=== PATIENT | female | born 1975 | race Hispanic/Latino ===

== ENCOUNTER 2019-09-24 08:38 | Emergency (ER) | payer SELFPAY ==
[2019-09-24 08:42] VITALS: BP 109/76
[2019-09-24] MEDS ORDERED: KETOROLAC 60 MG/2 ML INJ IM ONE (08:55)
[2019-09-24] MEDS ORDERED: DICYCLOMINE 20 MG/2 ML INJ IM ONE (08:55)
[2019-09-24] MEDS ORDERED: ONDANSETRON 4 MG ODT TAB PO ONE (08:55)
--- NOTE | 2019-09-24 09:48 | Emergency Department Report ---
ED General Adult HPI - General Chief complaint: Nausea/Vomiting/Diarrhea Stated complaint: ABD PAIN/BODY PAIN Time Seen by Provider: 09/24/19 08:54 Source: patient Mode of arrival: Ambulatory Limitations: No Limitations - History of Present Illness Initial comments: Patient is a 43-year-old female who is presenting with nausea vomiting diarrhea for the past 2-3 days. Patient states she also has accompanying mild cough and body aches. and son also have been ill. The patient denies fever. Patient's last episode of vomiting was this morning. Patient states she has continued to have abdominal cramps which is severe Severity scale (0 -10): 8 - Related Data Previous Rx's Medication Instructions Recorded Last Taken Type Dicyclomine [Bentyl] 20 mg PO QID #10 tablet 09/24/19 Unknown Rx Ibuprofen [Motrin 600 MG tab] 600 mg PO Q8H PRN #10 tablet 09/24/19 Unknown Rx Ondansetron [Zofran Odt] 4 mg PO Q8HR #10 tab.rapdis 09/24/19 Unknown Rx traMADol [Ultram] 50 mg PO Q6HR PRN #12 tablet 09/24/19 Unknown Rx Allergies Allergy/AdvReac Type Severity Reaction Status Date / Time No Known Allergies Allergy Unverified 09/24/19 08:41 ED Review of Systems ROS: Stated complaint: ABD PAIN/BODY PAIN Other details as noted in HPI Comment: All other systems reviewed and negative ED Past Medical Hx - Social History Smoking Status: Current Every Day Smoker Substance Use Type: None - Medications Home Medications: Home Medications Medication Instructions Recorded Confirmed Last Taken Type Dicyclomine [Bentyl] 20 mg PO QID #10 tablet 09/24/19 Unknown Rx Ibuprofen [Motrin 600 MG tab] 600 mg PO Q8H PRN #10 tablet 09/24/19 Unknown Rx Ondansetron [Zofran Odt] 4 mg PO Q8HR #10 tab.rapdis 09/24/19 Unknown Rx traMADol [Ultram] 50 mg PO Q6HR PRN #12 tablet 09/24/19 Unknown Rx ED Physical Exam - General Limitations: No Limitations General appearance: alert, in no apparent distress - Head Head exam: Present: atraumatic, normocephalic - Eye Eye exam: Present: normal appearance, PERRL, EOMI - ENT ENT exam: Present: mucous membranes moist - Neck Neck exam: Present: normal inspection - Respiratory Respiratory exam: Present: normal lung sounds bilaterally. Absent: respiratory distress, wheezes, rales, rhonchi - Cardiovascular Cardiovascular Exam: Present: regular rate, normal rhythm, normal heart sounds. Absent: systolic murmur, diastolic murmur, rubs, gallop - GI/Abdominal GI/Abdominal exam: Present: soft, normal bowel sounds. Absent: distended, tenderness, guarding, rebound - Extremities Exam Extremities exam: Present: normal inspection - Back Exam Back exam: Present: normal inspection - Neurological Exam Neurological exam: Present: alert, oriented X3 - Psychiatric Psychiatric exam: Present: normal affect, normal mood - Skin Skin exam: Present: warm, dry, intact, normal color. Absent: rash ED Course Vital Signs 09/24/19 08:41 Temperature 97.7 F Pulse Rate 96 H Respiratory 16 Rate Blood Pressure 109/76 [Right] O2 Sat by Pulse 100 Oximetry ED Medical Decision Making - Medical Decision Making Patient is a 43-year-old female with nausea vomiting diarrhea and flulike symptoms. The patient's vital signs are within normal limits. Patient was given medication for symptomatic relief and she was demonstrated to be able to keep meds down before being discharged. Critical care attestation.: If time is entered above; I have spent that time in minutes in the direct care of this critically ill patient, excluding procedure time. ED Disposition Clinical Impression: Gastroenteritis, Influenza Disposition: DC-01 TO HOME OR SELFCARE Is pt being admited?: No Does the pt Need Aspirin: No Condition: Stable Instructions: Influenza (ED), Gastroenteritis (ED) Referrals: SALMA LÓPEZ MD [Referring] - 3-5 Days Time of Disposition: 09:48
== END 2019-09-24 10:16 | disposition home or self-care (01) ==
LOC: ED 08:38
DX: K52.9 Noninfective gastroenteritis and colitis, unspecified (principal); J11.1 Influenza due to unidentified influenza virus with other respiratory manifestations; F17.200 Nicotine dependence, unspecified, uncomplicated; Z79.1 Long term (current) use of non-steroidal anti-inflammatories (NSAID); Z79.899 Other long term (current) drug therapy
CPT/HCPCS: 96372; 99282; J0500; J1885; Q0162